=== PATIENT | female | born 1960 | race African-American/Black ===

== ENCOUNTER 2019-04-07 07:09 | Inpatient (IN) | payer OTHER ==
[2019-04-06 13:14] VITALS: BMI 35.5
[2019-04-07] MEDS ORDERED: PNEUMOC 13-VAL CONJ-DIP CRM/PF 0.5 ML DISP.SYRIN IM ONE (08:15)
[2019-04-07] MEDS ORDERED: GENTAMICIN SO4 80 MG/2 ML VIAL ONE (08:51)
[2019-04-07] MEDS ORDERED: LIDOCAINE 1%-EPI 1:100,000 30 ML MDV IJ ONE (08:51)
[2019-04-07] MEDS ORDERED: THROMBIN (BOVINE) 5,000 UNIT VIAL TP ONE (08:52)
[2019-04-07] MEDS ORDERED: PROPOFOL 20 ML ONE (08:53)
[2019-04-07] MEDS ORDERED: MIDAZOLAM HCL 2 MG/2 ML SINGLE DOSE VIAL ONE (08:53)
[2019-04-07] MEDS ORDERED: ROCURONIUM BROMIDE 50 MG/5 ML SYRINGE ONE (08:53)
[2019-04-07] MEDS ORDERED: LIDOCAINE HCL/PF 2% SDV 5ML VIAL ONE (08:54)
[2019-04-07] MEDS ORDERED: PROMETHAZINE HCL 25 MG/1 ML VIAL IVPB PRN ×2 (09:06)
[2019-04-07] MEDS ORDERED: ONDANSETRON 4 MG/2 ML VIAL IVPUSH PRN ×3 (09:06→11:48)
[2019-04-07] MEDS ORDERED: DEXAMETHASONE SOD PHOSPHATE 4 MG/1 ML VIAL IVPUSH PRN (09:06)
--- NOTE | 2019-04-07 09:14 | HP ---
History & Physical Update - History History: No Change - Physical Physical: No Change - Assessment Assessment: No Change - Plan Plan: No Change (Full H&P in paper chart)
[2019-04-07] MEDS ORDERED: VANCOMYCIN 1,000 MG VIAL (RESTRICTED TO ID ONLY) ONE (09:37)
[2019-04-07] MEDS ORDERED: ceFAZolin SODIUM 1 GM VIAL ONE ×2 (09:37→17:21)
[2019-04-07] MEDS ORDERED: SODIUM CHLORIDE 0.9% P/F 10 ML VIAL IJ ONE (09:37)
[2019-04-07] MEDS ORDERED: VANCOMYCIN 1,000 MG VIAL (RESTRICTED TO ID ONLY) IVPB ONE (09:39)
[2019-04-07] MEDS ORDERED: ceFAZolin SODIUM 1 GM VIAL IVPB ONE (09:42)
[2019-04-07] MEDS ORDERED: LIDOCAINE 1%/EPI 1:100000 (20 ML MULTI DOSE VIAL) IJ ONE (09:51)
[2019-04-07] MEDS ORDERED: BACITRACIN 50,000 UNITS VIAL TP ONE (10:15)
[2019-04-07] MEDS ORDERED: GENTAMICIN SO4 80 MG/2 ML VIAL IVPB ONE (10:15)
[2019-04-07] MEDS ORDERED: HYDROGEN PEROXIDE 473 ML PO ONE (10:15)
[2019-04-07] MEDS ORDERED: DESFLURANE GAS 240 ML BOTTLE IH ONE (10:44)
[2019-04-07] MEDS ORDERED: ACETAMINOPHEN INJECTION 100 ML IVPB ONE (11:01)
[2019-04-07] MEDS ORDERED: NEOSTIGMINE METHYLSULFATE 0.5 MG/1 ML - 10 ML MDV ONE (11:04)
[2019-04-07] MEDS ORDERED: GLYCOPYRROLATE 0.2 MG/1 ML VIAL ONE (11:04)
[2019-04-07] MEDS ORDERED: diphenhydrAMINE HCL 25 MG CAPSULE (FP) PO PRN (11:48)
[2019-04-07] MEDS ORDERED: ACETAMINOPHEN 1000 MG/100 ML VIAL (NON FORMULARY) IVPB ONE (11:49)
[2019-04-07] MEDS ORDERED: TRIAMTERENE AND HCTZ - 37.5 MG/25 MG CAPSULE PO SCH (12:00)
--- NOTE | 2019-04-07 12:06 | OP ---
Operative Note - Note: Operative Date: 04/07/19 Pre-Operative Diagnosis: Cervical spondylosis Operation: C4 corpectomy with decompression of Spondylosis and reconstruction with PEEK cage anterior plate Post-Operative Diagnosis: Same as Pre-op Surgeon: Sancho Harper Crutching Contractor: Robbie Walotn Anesthesiologist/CONDITIONER TENDER: Bang Schwab Anesthesia: General Estimated Blood Loss (mls): 50 Fluid Volume Replaced (mls): 1,000 Operative Report Dictated: Yes
[2019-04-07] MEDS: HYDROmorphone *PCA* 10MG/50ML DISP.SYRIN PCA SCH (12:15)
[2019-04-07] MEDS ORDERED: HYDROmorphone *PCA* 10MG/50ML DISP.SYRIN PCA ONE (12:15)
--- NOTE | 2019-04-07 13:25 | PN ---
Progress Note (short form) - Note Progress Note: seen in recovery room Vital Signs Period Temp Pulse Resp BP Sys/Reyna Pulse Ox Last 24 Hr 98.0 F-98.5 F 64-84 16-20 123-146/73-80 99-100 s1s2 rrr lungs cta and moves all 4 extremities awake alert oriented c/o some neck pain cervical drain with bloody discharge 59 yo lady s/p C3/C4 spinal fusion today, tolerated procedure well pmh of htn plan for now as per surgery resume bp meds tomorrow am
[2019-04-07] MEDS: DOCUSATE SODIUM 100 MG CAPSULE (FP) PO SCH ×2 (14:00→21:37)
[2019-04-07] MEDS: HEPARIN NA (PORCINE) 5,000 UNITS/ML 1ML VIAL SQ SCH ×2 (16:46→21:36)
[2019-04-07] MEDS: LACTATED RINGERS SOLUTION 1,000 ML IV SCH (16:47)
[2019-04-07] MEDS: metFORMIN HCL 500 MG TABLET (FP) PO SCH (17:10)
[2019-04-07] MEDS ORDERED: DEXTROSE 5%-WATER - 50 ML IVPB ONE (17:22)
[2019-04-07] MEDS: CEFAZOLIN 1 GM in DEXTROSE 5%-WATER - 50 ML IVPB SCH (17:34)
[2019-04-07] MEDS ORDERED: PNEUMOCOCCAL 23 VACCINE 0.5 ML VIAL IM ONE (18:00)
[2019-04-08] MEDS: LACTATED RINGERS SOLUTION 1,000 ML IV SCH ×2 (00:48→10:22)
[2019-04-08] MEDS ORDERED: ceFAZolin SODIUM 1 GM VIAL ONE ×2 (02:09→10:15)
[2019-04-08] MEDS ORDERED: DEXTROSE 5%-WATER - 50 ML IVPB ONE ×2 (02:10→10:15)
[2019-04-08] MEDS: CEFAZOLIN 1 GM in DEXTROSE 5%-WATER - 50 ML IVPB SCH ×2 (02:13→10:21)
[2019-04-08 02:47] VITALS: TEMP 98
[2019-04-08] MEDS: DOCUSATE SODIUM 100 MG CAPSULE (FP) PO SCH ×2 (07:12→14:28)
[2019-04-08] MEDS: HEPARIN NA (PORCINE) 5,000 UNITS/ML 1ML VIAL SQ SCH ×2 (07:12→14:28)
[2019-04-08] MEDS: metFORMIN HCL 500 MG TABLET (FP) PO SCH ×2 (07:12→17:09)
[2019-04-08 07:55] LABS: HEMOGLOBIN 9.6 GM/dL (10.7-15.3); MCH 30.2 pg (25.7-33.7); MCHC 34.3 g/dl (32.0-36.0); PLATELET COUNT 199 K/MM3 (134-434); RBC 3.18 M/mm3 (3.60-5.2); RDW 13.6 % (11.6-15.6); WHITE BLOOD COUNT 7.9 K/mm3 (4.0-10.0)
[2019-04-08 08:20] LABS: BLOOD UREA NITROGEN 10.4 mg/dL (7-18); CALCIUM 8.5 mg/dL (8.5-10.1); CREATININE 0.8 mg/dL (0.55-1.3); POTASSIUM 3.4 mmol/L (3.5-5.1)
--- NOTE | 2019-04-08 08:23 | PN ---
Progress Note (short form) - Note Progress Note: CBC, BMP 04/08/19 07:20 04/08/19 07:20 Vital Signs Period Temp Pulse Resp BP Sys/Reyna Pulse Ox Last 24 Hr 97.9 F-98.9 F 68-84 16-20 114-138/52-81 97-100 s1s2 rrr lungs cta ant moves all 4 extremities awake alert oriented c/o some neck pain cervical drain with scant bloody discharge 59 yo lady s/p C3/C4 spinal fusion POD#1 pmh of htn plan for now as per surgery resume bp meds and metformin
[2019-04-08] MEDS: HYDROmorphone *PCA* 10MG/50ML DISP.SYRIN PCA SCH (08:45)
[2019-04-08] MEDS ORDERED: POTASSIUM CHLORIDE ORAL LIQUID 20 MEQ/15 ML PO ONE (08:45)
[2019-04-08] MEDS: CEFAZOLIN 1 GM/D5W 1 GM/50 ML BAG IVPB SCH (08:45)
--- NOTE | 2019-04-08 08:52 | PN ---
Progress Note (short form) - Note Progress Note: Neurosurgery 59yo F s/p C4 corpectomy POD1, pt seen and examined at bedside. Pt states that she has neck pain especially sore throat, pt is tolerating liquids. Pt denies fever, chills, n/v. Pt ambulating and urinating well. Pt states that she has been using her SENIOR ELECTRONICS ENGINEER. Pt is anxious to go home today. Last Vital Signs Temp Pulse Resp BP Pulse Ox 98.0 F 70 18 115/52 L 100 04/08/19 05:00 04/08/19 05:00 04/08/19 05:00 04/08/19 05:00 04/08/19 02:15 CBC, BMP 04/08/19 07:20 04/08/19 07:20 PE: Gen: A&O X3 Resp: breathing comfortably Neck: incision is clean with no erythema or discharge, drain in place with serosanguinous drainage. Output: 70ml Ext: no weakness or numbness. Problem List - Problems (1) S/P cervical spinal fusion Assessment/Plan: Plan -pt appears to be doing well, will remove drain later today -plan for pt to go home later today, hopefully once pain is improved. -continue c-collar -OOB/ambulate -soft diet Pt discussed with Dr. Harper, who agrees with plan Code(s): Z98.1 - ARTHRODESIS STATUS
--- NOTE | 2019-04-08 09:53 | PN ---
Progress Note (short form) - Note Progress Note: Post op day#2.S/P C4 Corpectomy under Ga uneventful.Patient stable and c/o pain score of 5-6/10 on Dilaudid ELECTRONIC GLUING MACHINE OPERATOR.Advised the patient to use the ELECTRONIC GLUING MACHINE OPERATOR properly.Will continue ELECTRONIC GLUING MACHINE OPERATOR and will f/u tomorrow.
[2019-04-08] MEDS ORDERED: FOLIC ACID 1 MG TABLET (FP) PO SCH (10:00)
[2019-04-08] MEDS ORDERED: TRIAMTERENE AND HCTZ - 37.5 MG/25 MG CAPSULE PO SCH (10:00)
[2019-04-08] MEDS ORDERED: FERROUS SO4 325 MG TABLET (FP) PO SCH (10:00)
[2019-04-08] MEDS ORDERED: PT OWN MED DRAWER 7, Y5N ONE (10:16)
[2019-04-08] MEDS ORDERED: traMADol HCL 50 MG TABLET PO PRN (14:06)
[2019-04-08] MEDS ORDERED: oxyCODONE HCL 5 MG TABLET PO PRN ×2 (14:06)
[2019-04-08] MEDS ORDERED: ACETAMINOPHEN 325 MG TABLET (FP) PO SCH (14:15)
[2019-04-08 17:16] VITALS: BP 117/59; PULSE 77
--- NOTE | 2019-04-09 09:19 | DS ---
Physical Examination Vital Signs: Vital Signs Temperature 98.0 F 04/08/19 17:14 Pulse Rate 77 04/08/19 17:14 Respiratory Rate 20 04/08/19 17:14 Blood Pressure 117/59 L 04/08/19 17:14 O2 Sat by Pulse Oximetry (%) 99 04/08/19 09:00 Labs: CBC, BMP 04/08/19 07:20 04/08/19 07:20 Discharge Summary Problems reviewed: Yes Reason For Visit: CERVICAL SPONDYLOSIS & METASTATIC FOCI Hospital Course: 59 yo lady s/p C3/C4 spinal fusion on 04.07.2020-tolerated procedure well cervical drain removed 1 day postop, cleared by surgeon to dc home with outpt follow up Condition: Good - Instructions Diet, Activity, Other Instructions: Post Operative Instructions Physical Activity Resume your normal everyday activity as tolerated. No heavy lifting or exercise until seen by your surgeon. You may walk unlimited amounts and climb stairs. You may resume driving the car when you feel safe and comfortable behind the wheel and you are no longer wearing your brace. Do not operate a vehicle while taking narcotic medication. Brace If you had neck surgery, wear surgical collar 23 hr/day. Remove to shower only. Wound Care Keep your incision clean, dry and covered at all times. Apply an occlusive dressing (Saran wrap or Tegaderm) when showering to avoid getting your incision wet. Do not submerge incision or apply ointments or creams. The anuradha will be removed in the office in 10-14 days post-op. Diet There are no dietary restrictions. Eat healthy, high-fiber foods. Drink 6-8 glasses of liquid each day. This will assist in keeping your bowels regular. Pain Management You may take Tylenol or acetaminophen. Any pain prescription medication ordered should be taken as prescribed for moderate to severe pain. Avoid any ibuprofen (Motrin, Advil, Aleve, Toradol, etc) for 3 months unless otherwise discussed with your surgeon. Call Dr Ireland for any of the following: Severe pain not relieved by medication Fever of 101 or higher Excessive bleeding or drainage on dressing Inability to urinate Any chest pain or shortness of breath, seek Emergency Care. Call the office to confirm a post-operative appointment for 2-3 weeks post-op Sancho Harper MD [facility] [address] [place] [address]. [place] [address] Referrals: Sancho Harper MD, FAANS [Staff Physician] - Disposition: HOME - Home Medications Comprehensive Discharge Medication List: Ambulatory Orders Triamterene/Hydrochlorothiazid [Triamterene-Hctz 37.5-25 mg Cp] 1 each PO ASDIR 09/07/17 Metformin HCl [Glucophage] 500 mg PO BID 04/06/19 Docusate Sodium [Colace -] 100 mg PO TID capsule 04/08/19 Docusate Sodium [Colace] 100 mg PO BID #30 capsule 04/08/19 Oxycodone HCl/Acetaminophen [Percocet 5-325 mg Tablet] 1 - 2 tab PO Q6H PRN #84 tablet MDD 8 04/08/19
--- NOTE | 2019-04-13 11:24 | SURG ---
Surgery Investment Consultant Note Investment Consultant: Robbie Walton PA-C Date of Service: 04/07/19 Diagnosis: Cervical spondylotic Myelopathy Procedure: 1. Interbody Cage (Corpectomy) 2. C3 Caudal hemicorpectomy with resection of osteophytes and posterior longitudinal ligament (technically challenging) 3. C4 Corpectomy with resection of osteophytes and posterior longitudinal ligament 4. C5 Rostral hemicorpectomy with resection of osteophytes and posterior longitudinal ligament 5. Anterior instrumentation C3-5 (technically challenging) 6. Fluoroscopy 7. Microdissection 8. C3/4 arthrodesis 9. C4/5 arthrodesis 10. Local autograft 11. Deformity correction (shinto of lordosis) I was present for the entirety of the operative procedure. For further detail, please refer to operative report. Visit type - Case Type Case Type: Scheduled - Emergency Emergency Visit: No - New patient This patient is new to me today: Yes Date on this admission: 04/13/19 - Critical Care Critical Care patient: No
== END 2019-04-08 19:19 | disposition home or self-care (01) | DRG 321 ==
LOC: JSAMEDAYSX 07:09 → J8W 16:40
PROVIDERS: ADMIT Neurological Surgery; ATTEND Neurological Surgery
PROC: 0RB30ZZ Excision of Cervical Vertebral Disc, Open Approach (ICD-10-PCS; 2019-04-07)
PROC: 00NW0ZZ Release Cervical Spinal Cord, Open Approach (ICD-10-PCS; 2019-04-07)
PROC: B01BZZZ Fluoroscopy of Spinal Cord (ICD-10-PCS; 2019-04-07)
PROC: 0RG20A0 Fusion of 2 or more Cervical Vertebral Joints with Interbody Fusion Device, Anterior Approach, Anterior Column, Open Approach (ICD-10-PCS; principal; 2019-04-07 09:00)
DX: M47.12 Other spondylosis with myelopathy, cervical region (principal); E11.9 Type 2 diabetes mellitus without complications; Z79.84 Long term (current) use of oral hypoglycemic drugs; E66.9 Obesity, unspecified; Z68.35 Body mass index [BMI] 35.0-35.9, adult; I10 Essential (primary) hypertension
CPT/HCPCS: 36415; 72125-TC; 76000-TC-FY; 80048; 82962; 85027; 86850; 86900; 86901; 90732; 94010; 94760; 97116-GP; 97161-GP; G0009; J0131; J1644

== ENCOUNTER 2019-04-10 20:13 | Emergency (ER) | payer OTHER ==
[2019-04-10 20:26] VITALS: BMI 35.5
--- NOTE | 2019-04-10 20:34 | PDOC ---
History of Present Illness - General History Source: Patient Exam Limitations: No Limitations - History of Present Illness Initial Comments: 04/10/19 20:36 59yF w PMHx DM, HTN, C4 corpectomy (04/07/19) with C-collar presenting w foreign body sensation at mid throat and dysphagia noted at 7am today while attempting to swallow oxycodone meds. Able to talk, no difficulty breathing, tolerating oral secretions and small amounts of liquid. Unable to swallow meds or solid food. Also complaining of pain d/t unable to take prescribed PO oxycodone. Discharged yesterday from hospital after corpectomy on 04/[address] Harper. Last swallowed meds 11pm day before. Denies fever, chest pain, SOB, nausea/vomiting. <Harley Castellanos - Last Filed: 04/10/19 23:40> <Veronica Snyder - Last Filed: 04/11/19 02:01> - General Chief Complaint: Choking Sensation Stated Complaint: UNABLE TO SWALLOW Time Seen by Provider: 04/10/19 20:33 Past History - Past Medical History Anemia: No Asthma: No Cancer: No Cardiac Disorders: No CVA: No COPD: No CHF: No Dementia: No Diabetes: Yes GI Disorders: No Disorders: No HTN: Yes Hypercholesterolemia: No Liver Disease: No Seizures: No Thyroid Disease: No - Psycho Social/Smoking Cessation Hx Smoking History: Never smoked Have you smoked in the past 12 months: No Hx Alcohol Use: No Drug/Substance Use Hx: No Substance Use Type: None Hx Substance Use Treatment: No <Harley Castellanos - Last Filed: 04/10/19 23:40> <Veronica Snyder - Last Filed: 04/11/19 02:01> - Past Medical History Allergies/Adverse Reactions: Allergies Allergy/AdvReac Type Severity Reaction Status Date / Time meperidine HCl [From Demerol] Allergy Severe Hives Verified 04/07/19 08:23 Home Medications: Ambulatory Orders Triamterene/Hydrochlorothiazid [Triamterene-Hctz 37.5-25 mg Cp] 1 each PO ASDIR 09/07/17 Metformin HCl [Glucophage] 500 mg PO BID 04/06/19 Docusate Sodium [Colace] 100 mg PO BID #30 capsule 04/08/19 Oxycodone HCl/Acetaminophen [Percocet 5-325 mg Tablet] 1 - 2 tab PO Q6H PRN #84 tablet MDD 8 04/08/19 Review of Systems - Review of Systems Constitutional: No: Chills, Fever HEENTM: Yes: Throat Pain. No: Eye Pain, Nose Pain, Throat Swelling Respiratory: No: Cough, Shortness of Breath Cardiac (ROS): No: Chest Pain, Palpitations ABD/GI: No: Abdominal Distended, Constipated, Diarrhea, Nausea, Vomiting : No: Burning, Dysuria Musculoskeletal: No: Back Pain, Joint Pain Integumentary: No: Bruising, Flushing Neurological: No: Headache, Seizure, Tingling Psychiatric: No: Anxiety, Depression Endocrine: No: Intolerance to Cold, Intolerance to Heat Hematologic/Lymphatic: No: Anemia, Blood Clots <Harley Castellanos - Last Filed: 04/10/19 23:40> *Physical Exam - Vital Signs Last Vital Signs Temp Pulse Resp BP Pulse Ox 99.6 F 99 H 04/10/19 20:22 04/10/19 20:22 04/10/19 20:04/10/19 20:04/10/19 20:22 - Physical Exam General Appearance: Yes: Nourished, Appropriately Dressed, Mild Distress HEENT: positive: EOMI, GARCÍA, Normal Voice, Pharynx Normal, Hearing Grossly Normal. negative: Scleral Icterus (R), Scleral Icterus (L), Pharyngeal Erythema , Tonsillar Exudate, Tonsillar Erythema Neck: positive: Supple. negative: Tender, Rigid Respiratory/Chest: positive: Lungs Clear, Normal Breath Sounds. negative: Chest Tender, Respiratory Distress Cardiovascular: positive: Regular Rhythm, Regular Rate, S1, S2. negative: Edema , Murmur Integumentary: positive: Normal Color, Dry Neurologic: positive: Fully Oriented, Alert, Normal Response, Responsive. negative: Sensory Deficit, Confused, Disoriented <Harley Castellanos - Last Filed: 04/10/19 23:40> - Vital Signs Last Vital Signs Temp Pulse Resp BP Pulse Ox 99.6 F 99 H 124/66 04/10/19 20:22 04/10/19 20:22 04/10/19 20:04/10/19 20:22 04/10/19 20:22 <Veronica Snyder - Last Filed: 04/11/19 02:01> ED Treatment Course - LABORATORY CBC & Chemistry Diagram: 04/10/19 21:25 04/10/19 21:25 <Harley Castellanos - Last Filed: 04/10/19 23:40> - LABORATORY CBC & Chemistry Diagram: 04/10/19 21:25 04/10/19 21:25 - ADDITIONAL ORDERS Additional order review: Laboratory Results 04/10/19 21:25 Sodium 139 Potassium 3.5 Chloride 102 Carbon Dioxide 27 Anion Gap 10 BUN 17.0 Creatinine 0.9 Est GFR (CKD-EPI)AfAm 80.55 Est GFR (CKD-EPI)NonAf 69.50 Random Glucose 88 Calcium 9.4 Total Bilirubin 1.0 AST 12 L ALT 14 Alkaline Phosphatase 96 Total Protein 7.4 Albumin 3.5 04/10/19 21:25 RBC 3.35 L MCV 89.2 MCHC 32.6 RDW 13.6 MPV 8.2 Neutrophils % 72.9 Lymphocytes % 16.7 Monocytes % 8.6 Eosinophils % 0.2 Basophils % 1.6 - Medications Given in the ED: ED Medications Discontinued Medications Generic Name Dose Route Start Last Admin Trade Name Freq PRN Reason Stop Dose Admin Dexamethasone Sodium Phosphate 10 mg 04/10/19 22:04 04/10/19 22:22 Decadron Injection - IVPUSH 04/10/19 22:05 10 mg ONCE ONE Administration Glucagon 1 mg 04/10/19 22:04 04/10/19 22:22 Glucagon - IVPUSH 04/10/19 22:05 1 mg ONCE ONE Administration Piperacillin Sod/Tazobactam 100 mls @ 200 mls/hr 04/11/19 00:42 04/11/19 01: 43 Sod 4.5 gm/ Dextrose IVPB 04/11/19 01:11 200 mls/hr ONCE ONE Administration Protocol Morphine Sulfate 4 mg 04/10/19 20:52 04/10/19 21:12 Morphine Injection - IVPUSH 04/10/19 20:53 4 mg ONCE ONE Administration Morphine Sulfate 2 mg 04/10/19 23:15 04/10/19 23:25 Morphine Injection - IVPUSH 04/10/19 23:16 2 mg ONCE ONE Administration <Veronica Snyder - Last Filed: 04/11/19 02:01> Medical Decision Making - Medical Decision Making 04/10/19 20:[address] - WBC 13, Hgb 9 (baseline) --- 59yF w PMHx DM, HTN, C4 corpectomy (04/07/19) with C-collar presenting w foreign body sensation and dysphagia today. Tolerating oral secretions, hemodynamically stable, no trouble breathing. Food bolus vs post-op edema/hematoma vs esophageal spasm. Low concern esophageal perforation (no chest crepitus) vs complete food impaction ( tolerating oral secretions) Given 6 morphine (2 to [address]), decadron, glucagon Anticipate admit for GI endoscopy Signed out to night team <Harley Castellanos - Last Filed: 04/10/19 23:40> Discharge - Discharge Information Problems reviewed: Yes <Harley Castellanos - Last Filed: 04/10/19 23:40> - Transfer to Acute Care Facility Receiving Facility Name: [facility] Accepting Physician:: Dr. Quinones, MICU Transfer Comment: 04/11/19 01:59 Pt requires ICU admission for airway monitoring. No ICU beds at this institution. due to severe supraglotting narrowing on CT, poor candidate for shun-tracheal intubation. Case discussed w/ anesthesia. Should the pt require airway intervention, will need a surgical airway. Safest place would be an ICU at a hospital with 24-h in-house ENT. <Veronica Snyder - Last Filed: 04/11/19 02:01> - Discharge Information Clinical Impression/Diagnosis: Dysphagia Qualifiers: Dysphagia type: esophageal phase Qualified Code(s): R13.10 - Dysphagia, unspecified Condition: Guarded Disposition: TRANSFER ACUTE CARE/OTHER HOSP
[2019-04-10] MEDS ORDERED: morphine CARPU-JECT 4 MG/1 ML DISP.SYRIN IVPUSH ONE (20:52)
[2019-04-10] MEDS ORDERED: morphine SULFATE 4 MG/ML VIAL ONE (21:00)
--- NOTE | 2019-04-10 21:25 | PDOC ---
Documentation entered by Cyndi Mcintosh SCRIBE, acting as scribe for Veronica Snyder MD. Veronica Snyder MD: This documentation has been prepared by the zebibe, Cyndi Mcintosh SCRIBE, under my direction and personally reviewed by me in its entirety. I confirm that the documentation accurately reflects all work, treatment, procedures, and medical decision making performed by me. Attending Attestation - Resident Resident Name: Harley Castellanos - ED Attending Attestation I have performed the following: I have examined & evaluated the patient, The case was reviewed & discussed with the resident, I agree w/resident's findings & plan, Exceptions are as noted - HPI HPI: 04/10/19 21:05 The patient is a 59-year-old female with a past medical history significant for DM, HTN, and corpectomy (on 04/07, discharged on 04/09) who presents to the emergency department with choking sensation. The patient reports she was able to swallow soft food last night, however, since this morning, shes unable to tolerate soft food and pain medication, secondary to foreign body sensation in the esophagus. The patient reports she can tolerate secretions, small amounts of fluids, and talk normally. Denies difficulty breathing or fever. Denies taking pain medication today. - Physicial Exam PE: 04/10/19 21:21 General: well appearing, in no acute respiratory distress Neck: no masses or crepitus, negative bruit. Lung: clear to auscultate Heart: Regular rate and rhythm. Skin: Surgical band clean, dry and intact - Medical Decision Making 04/10/19 21:23 59yoF POD #3 s/p cspine fusion C1-2-3 presents w/ 1d of difficulty swallowing and extreme neck pain, unable to tolerate her pain meds or food, + tolerating secretions. Concern for postop edema/hematoma/bleeding. - CT Neck - pain control - Dispo per results.
[2019-04-10 21:44] LABS: BASO % 1.6 % (0-2.0); EOS % 0.2 % (0-4.5); HEMATOCRIT 29.9 % (32.4-45.2); HEMOGLOBIN 9.7 GM/dL (10.7-15.3); LYMPH % 16.7 % (8-40); MCH 29.1 pg (25.7-33.7); MCHC 32.6 g/dl (32.0-36.0); MEAN CELL VOLUME 89.2 fl (80-96); MEAN PLT VOLUME 8.2 fl (7.5-11.1); MONO % 8.6 % (3.8-10.2); NEUT % 72.9 % (42.8-82.8); PLATELET COUNT 252 K/MM3 (134-434); RBC 3.35 M/mm3 (3.60-5.2); RDW 13.6 % (11.6-15.6)
[2019-04-10] MEDS ORDERED: GLUCAGON 1 MG KIT IVPUSH ONE (22:04)
[2019-04-10] MEDS ORDERED: DEXAMETHASONE SOD PHOSPHATE 10 MG/1 ML VIAL IVPUSH ONE (22:04)
[2019-04-10] MEDS ORDERED: DEXAMETHASONE SOD PHOSPHATE 10 MG/1 ML VIAL ONE (22:11)
[2019-04-10] MEDS ORDERED: GlUCAGON HUMAN RECOMBINANT 1 MG/VIAL ONE (22:12)
[2019-04-10 22:37] LABS: ALBUMIN 3.5 g/dl (3.4-5.0); CALCIUM 9.4 mg/dL (8.5-10.1); CREATININE 0.9 mg/dL (0.55-1.3); POTASSIUM 3.5 mmol/L (3.5-5.1); TOT PROT 7.4 g/dl (6.4-8.2)
[2019-04-10] MEDS ORDERED: morphine CARPU-JECT 2 MG/1 ML DISP.SYRIN IVPUSH ONE (23:15)
[2019-04-10] MEDS ORDERED: MORPHINE SULFATE 2 MG/ML VIAL ONE (23:19)
--- NOTE | 2019-04-10 23:41 | PDOC ---
*Physical Exam - Vital Signs Last Vital Signs Temp Pulse Resp BP Pulse Ox 99.6 F 99 H 19 124/66 99 04/10/19 20:22 04/10/19 20:22 04/10/19 20:22 04/10/19 20:22 04/10/19 20:22 ED Treatment Course - LABORATORY CBC & Chemistry Diagram: 04/10/19 21:25 04/10/19 21:25 - ADDITIONAL ORDERS Additional order review: Laboratory Results 04/10/19 21:25 Sodium 139 Potassium 3.5 Chloride 102 Carbon Dioxide 27 Anion Gap 10 BUN 17.0 Creatinine 0.9 Est GFR (CKD-EPI)AfAm 80.55 Est GFR (CKD-EPI)NonAf 69.50 Random Glucose 88 Calcium 9.4 Total Bilirubin 1.0 AST 12 L ALT 14 Alkaline Phosphatase 96 Total Protein 7.4 Albumin 3.5 04/10/19 21:25 RBC 3.35 L MCV 89.2 MCHC 32.6 RDW 13.6 MPV 8.2 Neutrophils % 72.9 Lymphocytes % 16.7 Monocytes % 8.6 Eosinophils % 0.2 Basophils % 1.6 - RADIOLOGY Radiology Studies Ordered: Category Date Time Status SOFT TISSUE NECK CT WITH CONTR [CT] Stat CT Scan 04/10/19 21:06 Taken - Medications Given in the ED: ED Medications Discontinued Medications Generic Name Dose Route Start Last Admin Trade Name Huber PRN Reason Stop Dose Admin Dexamethasone Sodium Phosphate 10 mg 04/10/19 22:04 04/10/19 22:22 Decadron Injection - IVPUSH 04/10/19 22:05 10 mg ONCE ONE Administration Glucagon 1 mg 04/10/19 22:04 04/10/19 22:22 Glucagon - IVPUSH 04/10/19 22:05 1 mg ONCE ONE Administration Morphine Sulfate 4 mg 04/10/19 20:52 04/10/19 21:12 Morphine Injection - IVPUSH 04/10/19 20:53 4 mg ONCE ONE Administration Morphine Sulfate 2 mg 04/10/19 23:15 04/10/19 23:25 Morphine Injection - IVPUSH 04/10/19 23:16 2 mg ONCE ONE Administration Medical Decision Making - Medical Decision Making 04/10/19 23:[address] Castellanos (PGY-1) 59 y/o female two day s/p C1-C3 fusion c/o choking sensation No crepitus, edema @ surgical incision site, patient @ CT pending evaluation for hematoma, 04/11/19 00:38 Case d/w Imaging commercial subcontractor - concern for cluster for gas bubbles in fluid + faint collection in retropharynx, loculated, w/mass effects, airway small + edema; Dr. Brendon Antoine Patient re-evaluated @ bedside 04/11/19 00:39 Case d/w Dr. Reynaldo Freeman (IM resident) - will admit to hospitalist 04/11/19 00:56 Case d/w Dr. Ly (ICU resident) - will evaluate at beside 04/11/19 01:00 Case d/w Dr. Harper (Neurosurgery) - requests prophylatic intubation 04/11/19 01:03 Case d/w anesthesia - recommend ENT 04/11/19 01:17 Case d/w Dr. Maravilla- recommends transfer as patient needs hospital with full ENT coverage Patient re-evaluated @ bedside, VSS, protecting airway with normal phonation, pain well controlled 04/11/19 01:[address] [facility] contacted for transfer 04/11/19 02:00 Patient accepted to [facility] - Dr. Ann Discharge - Discharge Information Problems reviewed: Yes Clinical Impression/Diagnosis: Dysphagia Qualifiers: Dysphagia type: esophageal phase Qualified Code(s): R13.10 - Dysphagia, unspecified Condition: Good Disposition: TRANSFER ACUTE CARE/OTHER HOSP - Admission No - Follow up/Referral - Patient Discharge Instructions - Post Discharge Activity
[2019-04-11] MEDS ORDERED: VANCOMYCIN 1,000 MG in DEXTROSE 5%-WATER - 250 ML IVPB ONE (00:42)
[2019-04-11] MEDS ORDERED: PIPERACILLIN/TAZOB 4.5 GM 4.5 GM in DEXTROSE 5%-WATER 100 ML IVPB ONE (00:42)
--- NOTE | 2019-04-11 00:57 | PN ---
Teaching Attending Note Name of Resident: Francisco Santo ATTENDING PHYSICIAN STATEMENT I saw and evaluated the patient. I reviewed the resident's note and discussed the case with the resident. I agree with the resident's findings and plan as documented. SUBJECTIVE: Patient is a 59 year old woman with a PMH of NIDDM, HTN and C4 corpectomy on (with decompression of Spondylosis and reconstruction with PEEK cage anterior plate) with C-collar presenting with foreign body sensation at mid throat and dysphagia noted at 7 am today while attempting to swallow Oxycodone pills. Able to talk, no difficulty breathing, tolerating oral secretions and small amounts of liquid. Unable to swallow medications or solid food. Also complaining of pain due to inability to take prescribed oxycodone. Discharged yesterday from hospital after corpectomy on 04/07/[address] Harper. Last swallowed meds 11pm day before. Denies fever, chest pain, SOB, nausea or vomiting. Denies alcohol, tobacco or illicit drug use. No sick contacts or recent travels. OBJECTIVE: Alert Vital Signs Period Temp Pulse Resp BP Sys/Reyna Pulse Ox Last 24 Hr 99.6 F 99 19 124/66 99 HEENT: No Jaundice, eye redness or discharge, PERRLA, EOMI. Normocephalic, atraumatic. External ears are normal and hearing is grossly intact. No nasal discharge. Neck: Supple; Cervical collar in place, neck wound dressed; no stridor or crepitus. No palpable adenopathy or thyromegaly. No JVD Chest: Good effort. Clear to auscultation and percussion. Heart: Regular. No S3, rub or murmur Abdomen: Not distended, soft, nontender and no HSM. No rebound or guarding. Normal bowel sounds. Ext: Peripheral pulses intact. No leg edema. Skin: Warm and dry. No petechiae, rash or ecchymosis. Neuro: Alert. Oriented x3. CN 2-12 grossly intact. Sensation grossly intact in all four extremities and DTR are symmetric. Psych: Appropriate mood and affect. Good insight. Current Medications Generic Name Dose Route Start Last Admin Trade Name Freq PRN Reason Stop Dose Admin Vancomycin HCl 1,000 mg/ 250 mls @ 250 mls/hr 04/11/19 00:42 Dextrose IVPB 04/11/19 01:41 ONCE ONE Protocol Piperacillin Sod/Tazobactam 100 mls @ 200 mls/hr 04/11/19 00:42 Sod 4.5 gm/ Dextrose IVPB 04/11/19 01:11 ONCE ONE Protocol Home Medications Medication Instructions Recorded Triamterene/Hydrochlorothiazid 1 each PO ASDIR 09/07/17 [Triamterene-Hctz 37.5-25 mg Cp] Metformin HCl [Glucophage] 500 mg PO BID 04/06/19 Docusate Sodium [Colace] 100 mg PO BID #30 capsule 04/08/19 Oxycodone HCl/Acetaminophen 1 - 2 tab PO Q6H PRN #84 tablet 04/08/19 [Percocet 5-325 mg Tablet] MDD 8 Abnormal Lab Results 04/10/19 04/10/19 21:25 21:25 WBC 13.0 H RBC 3.35 L Hgb 9.7 L Hct 29.9 L Absolute Neuts (auto) 9.5 H AST 12 L ASSESSMENT AND PLAN: 1. Sepsis due to surgical site infection/abscess - CT scan of neck soft tissue shows possible "cluster for gas bubbles in fluid + faint collection in retropharynx, loculated, with mass effects, airway small + edema. ER staff discussed case with the Neurosurgeon who recommended prophylactic intubation and IV Decadron. Anaesthesia felt intubation was not warranted. ENT specialist consult. Will continue IV Decadron 4 mg q 6 hour and Morphine 1 mg q 6 hours and IV NS. Will monitor closely for respiratory distress and/or stridor. Being treated with IV Vancomycin and Zosyn. EKG shows NSR and LVH. Will continue comprehensive care for all of patients comorbid conditions. 2. DM For now, we will hold the home diabetes drugs and implement sliding scale insulin regimen. Provide comprehensive diabetes care with patient teaching and counseling about the importance of adherence to prescribed diabetes regimen, euglycemia, eye care and foot care. 3. Anemia - Cause unclear. Will do basic anemia work up including serial stool guaiacs, reticulocyte count and iron studies. Would benefit from Procrit therapy once iron replete. 4. Obesity Counseled on the risks associated with obesity. Will provide patient all the necessary assistance, counseling and positive reinforcement to facilitate weight loss. Consult social media marketing manager. 5. Hypertension - Restart suitable outpatient antihypertensive drugs when clinically appropriate. Revise regimen to ensure [id number] excellent BP control and domestic violence counselor patient on the injurious effects of uncontrolled hypertension. Nonpharmacologic measures to control hypertension like weight loss , salt restriction and exercise discussed. Importance of adherence to treatment regimen and attainment of normotension emphasized. 6. DVT prophylaxis - SCD, Early ambulation 7. Advance directives - Full code
[2019-04-11] MEDS ORDERED: VANCOMYCIN 1 GRAM (PRE-DOCKED) 1,000 MG/250 ML BAG IVPB ONE (01:17)
[2019-04-11] MEDS ORDERED: PIPERACILLIN/TAZOB 4.5 GM 4.5 GM/100 ML BAG IVPB ONE (01:17)
[2019-04-11] MEDS ORDERED: INSULIN SLIDING SCALE (NOVOLOG) 1 VIAL SQ SCH ×2 (01:45→07:00)
--- NOTE | 2019-04-11 01:56 | HP ---
CHIEF COMPLAINT: difficulty swallowing PCP: Dr. Macie Guillaume HISTORY OF PRESENT ILLNESS: Kira Vanegas is a 59 year old female with a past medical history of DM, HTN, recent C4 corpectomy and cervical fusion presenting with difficulty swallowing. The patient was recently discharged 04/09/19 after having the above named procedure. She noted that she was doing well with her cervical collar. On the night before admission, the patient was able to tolerate her oral pain medications at 11PM and went to bed. She then noted that when she woke up and attempted to take her medications at 8AM she was unable to swallow them properly and had pain on the right side of her neck. She noted that at first she only had difficulty swallowing solids but progressed to not being able to tolerate liquids well and at bedside had difficulty with her saliva. She denied any shortness of breath, wheezing, gasping, dizziness, lightheadedness, nausea, vomiting, abdominal pain, fever, chills. Endorsed some squeezing chest pain on the left side of her chest and neck pain on the R side. Denied any focal weakness or sensory loss. Denied recent travel or sick contacts. ER course was notable for: (1) HR 99, O2 sat 99 on RA (2) WBC 13.0, Hgb 9.7 (3) Given Decadron 10mg, Glucagon 1mg, Morphine total 6mg, Vancomycin, Zosyn (4) Cervical soft tissue neck CT noting: Patient is status post multilevel anterior cervical fusion from C3 through C5. There is postoperative fluid in the right anterior cervical incisional tract from C3 through C5. However, there is a cluster of gas bubbles within this fluid that is concerning for infection. There is also a faint elongated fluid collection with a thin wall in the soft tissues of the posterior hypopharynx. 3.8 cm transverse and 7.5 mm AP. The etiology of this collection is uncertain but abscess is possible. It is exerting mass effect on the posterior aspect of the hypopharynx just inferior to the epiglottis resulting in a very small airway at this level. There is also generalized retropharyngeal and retrolaryngeal edema. Parotid and submandibular glands are normal. Enlarged nodular left lobe thyroid. No discrete cervical hematoma is identified. 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 Allergies meperidine HCl [From Demerol] Allergy (Severe, Verified 04/07/19 08:23) Hives HOME MEDICATIONS: Home Medications Medication Instructions Recorded Triamterene/Hydrochlorothiazid 1 each PO ASDIR 09/07/17 [Triamterene-Hctz 37.5-25 mg Cp] Metformin HCl [Glucophage] 500 mg PO BID 04/06/19 Docusate Sodium [Colace] 100 mg PO BID #30 capsule 04/08/19 Oxycodone HCl/Acetaminophen 1 - 2 tab PO Q6H PRN #84 tablet 04/08/19 [Percocet 5-325 mg Tablet] MDD 8 REVIEW OF SYSTEMS CONSTITUTIONAL: Absent: fever, chills, diaphoresis, generalized weakness, malaise, loss of appetite, HEENT: throat pain, throat swelling, difficulty swallowing Absent: rhinorrhea, nasal congestion, mouth swelling, visual changes CARDIOVASCULAR: chest pain Absent: syncope, palpitations, irregular heart rate, lightheadedness, peripheral edema RESPIRATORY: Absent: cough, shortness of breath, dyspnea with exertion, orthopnea, wheezing, stridor GASTROINTESTINAL: Absent: abdominal pain, abdominal distension, nausea, vomiting, diarrhea, constipation GENITOURINARY: Absent: dysuria, frequency, urgency, hesitancy, hematuria, flank pain MUSCULOSKELETAL: Absent: myalgia, arthralgia, joint swelling, back pain, neck pain SKIN: Absent: rash, itching, pallor HEMATOLOGIC/IMMUNOLOGIC: Absent: easy bleeding, easy bruising, lymphadenopathy, frequent infections ENDOCRINE: Absent: unexplained weight gain, unexplained weight loss, heat intolerance, cold intolerance NEUROLOGIC: Absent: headache, focal weakness or paresthesias, dizziness, unsteady gait, seizure, mental status changes, bladder or bowel incontinence PSYCHIATRIC: Absent: anxiety, depression, suicidal or homicidal ideation, hallucinations. PHYSICAL EXAMINATION Vital Signs - 24 hr 04/10/19 20:22 Temperature 99.6 F Pulse Rate 99 H Respiratory 19 Rate Blood Pressure 124/66 O2 Sat by Pulse 99 Oximetry (%) GENERAL: Awake, alert, and fully oriented, in mild acute distress. HEAD: Normal with no signs of trauma. EYES: Pupils equal, round and reactive to light, extraocular movements intact, sclera anicteric, conjunctiva clear. EARS, NOSE, THROAT: Oropharynx clear without exudates. Tongue not enlarged. Non enlarged tonsils. Moist mucous membranes. NECK: In [place] collar. Limited range of motion, tender to palpation on R side of the neck. No auscultated stridor. Normal tracheal breath sounds. LUNGS: Breath sounds equal, clear to auscultation bilaterally. No wheezes, and no crackles. No accessory muscle use. HEART: Regular rate and rhythm, normal S1 and S2 without murmur, rub. ABDOMEN: Soft, nontender, not distended, normoactive bowel sounds, no guarding, no rebound, no masses. MUSCULOSKELETAL: Normal range of motion at all joints. No bony deformities or tenderness. UPPER EXTREMITIES: 2+ pulses, warm, well-perfused. No cyanosis. No clubbing. No peripheral edema. LOWER EXTREMITIES: 2+ pulses, warm, well-perfused. No calf tenderness. No peripheral edema. NEUROLOGICAL: Cranial nerves II-XII intact. 5/5 muscle strength upper and lower extremities bilaterally. Sensation intact to gross touch throughout. PSYCHIATRIC: Cooperative. Good eye contact. Appropriate mood and affect. SKIN: Warm, dry, normal turgor, no rashes or lesions noted, normal capillary refill. Laboratory Results - last 24 hr 04/10/19 04/10/19 21:25 21:25 WBC 13.0 H RBC 3.35 L Hgb 9.7 L Hct 29.9 L MCV 89.2 MCH 29.1 MCHC 32.6 RDW 13.6 Plt Count 252 D MPV 8.2 Absolute Neuts (auto) 9.5 H Neutrophils % 72.9 Lymphocytes % 16.7 Monocytes % 8.6 Eosinophils % 0.2 Basophils % 1.6 Nucleated RBC % 0 Sodium 139 Potassium 3.5 Chloride 102 Carbon Dioxide 27 Anion Gap 10 BUN 17.0 Creatinine 0.9 Est GFR (CKD-EPI)AfAm 80.55 Est GFR (CKD-EPI)NonAf 69.50 Random Glucose 88 Calcium 9.4 Total Bilirubin 1.0 AST 12 L ALT 14 Alkaline Phosphatase 96 Total Protein 7.4 Albumin 3.5 EKG--> NSR, LVH, no ST segment changes, QTc 459 ASSESSMENT/PLAN: Kira Vanegas is a 59 year old female with a past medical history of DM, HTN, recent C4 corpectomy and cervical fusion admitted for possible impending airway compromise attributed to mass effect from abscess vs hematoma. Possible impending airway compromise - CT as above - neurosurgery, Dr. Harper consulted by ER, recommending anesthesia evaluation and possible prophylactic intubation - anesthesia contacted by ER recommending close observation - ENT consulted, Dr. French, recommending transfer to [facility] - Decadron 10mg given in ED, continue at 4mg q6h - ICU monitoring with frequency airway checks, oxygen saturation - low threshold for intubation - neurochecks - CXR ordered Sepsis secondary to possible abscess in neck with recent instrumentation - HR 99 and WBC 13.0 - continue vancomycin and Zosyn - ID consulted Chest Pain - EKG ordered - cardiac profile - continue to monitor DM - BGM q4h while patient on sterioids - ISS q4h - A1c Anemia - likely in setting of recent surgery - iron studies - FOBT Thyroid Nodule noted on CT scan - will need to have thyroid U/S as outpatient - endocrine consulted HTN - currently well controlled - restart home medications when clinically appropriate DVT PPx - SCDS - no chemical AC in setting of possible hematoma FEN - no standing fluids - continue to monitor electrolytes and replete as necessary - NPO pending evaluation by ENT Dispo - admit to ICU - transfer to [facility] Family Medical History Other Family History: Uncle- colon CA, Mother - HTN Visit type - Emergency Visit Emergency Visit: Yes Care time: The patient presented to the Emergency Department on the above date and was hospitalized for further evaluation of their emergent condition. - New Patient This patient is new to me today: Yes Date on this admission: 04/11/19 - Critical Care Critical Care patient: Yes Total Critical Care Time (in minutes): 40 Critical Care Statement: The care of this patient involved high complexity decision making to prevent further life threatening deterioration of the patient 's condition and/or to evaluate & treat vital organ system(s) failure or risk of failure.
[2019-04-11 01:59] LABS: INR 1.15 (0.83-1.09); PROTHROMBIN TIME (PATIENT) 13.6 SEC (9.7-13.0)
--- NOTE | 2019-04-11 02:37 | DS ---
Physical Exam: SUBJECTIVE: Patient seen and examined at the bedside. Refer to H&P for further detail. OBJECTIVE: Vital Signs Period Temp Pulse Resp BP Sys/Reyna Pulse Ox Last 24 Hr 99.6 F 99 19 124/66 99 PHYSICAL EXAM GENERAL: Awake, alert, and fully oriented, in mild acute distress. HEAD: Normal with no signs of trauma. EYES: Pupils equal, round and reactive to light, extraocular movements intact, sclera anicteric, conjunctiva clear. EARS, NOSE, THROAT: Oropharynx clear without exudates. Tongue not enlarged. Non enlarged tonsils. Moist mucous membranes. NECK: In [place] collar. Limited range of motion, tender to palpation on R side of the neck. No auscultated stridor. Normal tracheal breath sounds. LUNGS: Breath sounds equal, clear to auscultation bilaterally. No wheezes, and no crackles. No accessory muscle use. HEART: Regular rate and rhythm, normal S1 and S2 without murmur, rub. ABDOMEN: Soft, nontender, not distended, normoactive bowel sounds, no guarding, no rebound, no masses. MUSCULOSKELETAL: Normal range of motion at all joints. No bony deformities or tenderness. UPPER EXTREMITIES: 2+ pulses, warm, well-perfused. No cyanosis. No clubbing. No peripheral edema. LOWER EXTREMITIES: 2+ pulses, warm, well-perfused. No calf tenderness. No peripheral edema. NEUROLOGICAL: Cranial nerves II-XII intact. 5/5 muscle strength upper and lower extremities bilaterally. Sensation intact to gross touch throughout. PSYCHIATRIC: Cooperative. Good eye contact. Appropriate mood and affect. SKIN: Warm, dry, normal turgor, no rashes or lesions noted, normal capillary refill. LABS Laboratory Results - last 24 hr 04/10/19 04/10/19 04/11/19 21:25 21:25 01:25 WBC 13.0 H RBC 3.35 L Hgb 9.7 L Hct 29.9 L MCV 89.2 MCH 29.1 MCHC 32.6 RDW 13.6 Plt Count 252 D MPV 8.2 Absolute Neuts (auto) 9.5 H Neutrophils % 72.9 Lymphocytes % 16.7 Monocytes % 8.6 Eosinophils % 0.2 Basophils % 1.6 Nucleated RBC % 0 PT with INR 13.60 H INR 1.15 H PTT (Actin FS) 34.0 Sodium 139 Potassium 3.5 Chloride 102 Carbon Dioxide 27 Anion Gap 10 BUN 17.0 Creatinine 0.9 Est GFR (CKD-EPI)AfAm 80.55 Est GFR (CKD-EPI)NonAf 69.50 Random Glucose 88 Calcium 9.4 Total Bilirubin 1.0 AST 12 L ALT 14 Alkaline Phosphatase 96 Total Protein 7.4 Albumin 3.5 HOSPITAL COURSE: ENT, Dr. French, contacted and recommended [facility] ER physicians initiated transfer and patient to be transferred to the service of Dr. Ann. Refer to H&P for further detail of patient's condition. Date of Admission:04/10/19 Date of Discharge: 04/11/19 Minutes to complete discharge: 35 Discharge Summary Problems reviewed: Yes Reason For Visit: UNABLE TO SWALLOW Current Active Problems Dysphagia (Acute) Condition: Guarded - Instructions Disposition: TRANSFER ACUTE CARE/OTHER HOSP - Home Medications Comprehensive Discharge Medication List: Ambulatory Orders Triamterene/Hydrochlorothiazid [Triamterene-Hctz 37.5-25 mg Cp] 1 each PO ASDIR 09/07/17 Metformin HCl [Glucophage] 500 mg PO BID 04/06/19 Docusate Sodium [Colace] 100 mg PO BID #30 capsule 04/08/19 Oxycodone HCl/Acetaminophen [Percocet 5-325 mg Tablet] 1 - 2 tab PO Q6H PRN #84 tablet MDD 8 04/08/19 Problem List - Problems (1) Airway compromise Code(s): J98.8 - OTHER SPECIFIED RESPIRATORY DISORDERS (2) S/P cervical spinal fusion Code(s): Z98.1 - ARTHRODESIS STATUS This patient is new to me today: Yes Date on this admission: 04/11/19 Emergency Visit: Yes Care time: The patient presented to the Emergency Department on the above date and was hospitalized for further evaluation of their emergent condition. Critical Care patient: Yes Total Critical Care Time (in minutes): 35 Critical Care Statement: The care of this patient involved high complexity decision making to prevent further life threatening deterioration of the patient 's condition and/or to evaluate & treat vital organ system(s) failure or risk of failure. - Discharge Referral Referred to [facility] No
[2019-04-11 02:53] VITALS: BP 113/61; PULSE 76
[2019-04-11] MEDS ORDERED: PIPERACILLIN/TAZOB 4.5 GM 4.5 GM in DEXTROSE 5%-WATER 100 ML IVPB SCH ×2 (03:00→09:00)
[2019-04-11 03:02] LABS: URINE APPEARANCE CLEAR; URINE COLOR YELLOW; URINE GLUCOSE (UA) NEGATIVE (NEGATIVE)
[2019-04-11 03:03] LABS: URINE BILIRUBIN SMALL (NEGATIVE); URINE KETONE 80 (NEGATIVE); URINE PROTEIN TRACE (NEGATIVE)
[2019-04-11 03:04] LABS: EPI CELLS 1.1 /HPF (0-5/HPF); HYALINE CASTS 4.81 /lpf (0-8); URINE BACTERIA 0.7 /hpf (NEGATIVE); URINE LEUK ESTERASE NEGATIVE (NEGATIVE); URINE NITRITE NEGATIVE (NEGATIVE); URINE UROBILINOGEN 0.2 mg/dL (0.2-1.0); URINE WBC 2.1 /hpf (0-5)
[2019-04-11 03:11] VITALS: TEMP 98.1
[2019-04-11] MEDS ORDERED: MORPHINE SULFATE 2 MG/ML VIAL IVPUSH PRN ×2 (04:00)
[2019-04-11] MEDS ORDERED: DEXAMETHASONE SOD PHOSPHATE 4 MG/1 ML VIAL IVPUSH SCH (04:30)
--- NOTE | 2019-04-11 09:11 | EKG ---
Test Reason : Blood Pressure : / mmHG Vent. Rate : 077 BPM Atrial Rate : 077 BPM P-R Int : 192 ms QRS Dur : 098 ms QT Int : 406 ms P-R-T Axes : 061 004 035 degrees QTc Int : 459 ms NORMAL SINUS RHYTHM MINIMAL VOLTAGE CRITERIA FOR LVH, MAY BE NORMAL VARIANT BORDERLINE ECG NO PREVIOUS ECGS AVAILABLE Confirmed by Anselmo Herrera ([id number]) on 04/11/2019 9:11:15 AM Referred By: Confirmed By:Anselmo Herrera
[2019-04-11] MEDS ORDERED: MUPIROCIN 2% TOPICAL OINTMENT FOR DECOLONIZATION NS SCH (10:00)
[2019-04-11] MEDS ORDERED: VANCOMYCIN 1 GM in D5W (PRE-DOCKED) 1,000 MG/250 ML IVPB SCH (13:00)
[2019-04-11] MEDS ORDERED: CHLORHEXIDINE GLUCONATE 4% CLEANSER FOR DECOLONIZATION TP SCH (22:00)
== END 2019-04-11 03:25 | disposition short-term general hospital (02) ==
LOC: JER 20:13
PROC: 3E013VG Introduction of Insulin into Subcutaneous Tissue, Percutaneous Approach (ICD-10-PCS; principal; 2019-04-10)
PROC: 3E03329 Introduction of Other Anti-infective into Peripheral Vein, Percutaneous Approach (ICD-10-PCS; 2019-04-10)
PROC: 3E03329 Introduction of Other Anti-infective into Peripheral Vein, Percutaneous Approach (ICD-10-PCS; 2019-04-10)
PROC: 3E033NZ Introduction of Analgesics, Hypnotics, Sedatives into Peripheral Vein, Percutaneous Approach (ICD-10-PCS; 2019-04-10)
PROC: 3E033NZ Introduction of Analgesics, Hypnotics, Sedatives into Peripheral Vein, Percutaneous Approach (ICD-10-PCS; 2019-04-10)
PROC: 3E033GC Introduction of Other Therapeutic Substance into Peripheral Vein, Percutaneous Approach (ICD-10-PCS; 2019-04-10)
PROC: 3E0333Z Introduction of Anti-inflammatory into Peripheral Vein, Percutaneous Approach (ICD-10-PCS; 2019-04-10)
DX: J98.8 Other specified respiratory disorders (principal); T81.44XA Sepsis following a procedure, initial encounter; A41.9 Sepsis, unspecified organism; Y83.8 Other surgical procedures as the cause of abnormal reaction of the patient, or of later complication, without mention of misadventure at the time of the procedure; Y92.038 Other place in apartment as the place of occurrence of the external cause; I10 Essential (primary) hypertension; E11.9 Type 2 diabetes mellitus without complications; Z79.84 Long term (current) use of oral hypoglycemic drugs; D64.9 Anemia, unspecified; R07.9 Chest pain, unspecified; E04.1 Nontoxic single thyroid nodule; E66.9 Obesity, unspecified; Z68.35 Body mass index [BMI] 35.0-35.9, adult; Z98.1 Arthrodesis status
CPT/HCPCS: 36415; 70491-TC; 71045-TC-FY; 80053; 81003; 82962; 85025; 85610; 85730; 86850; 86900; 86901; 87040; 93005; 93010; 99285-25; J1100; Q9967

== ENCOUNTER 2021-05-23 11:00 | Inpatient (IN) | payer OTHER ==
[2021-06-18 06:26] VITALS: BMI 37.4
[2021-06-18] MEDS ORDERED: BUPIVACAINE LIPOSOME/PF (EXPAREL) 266 MG/20 ML VIAL ONE (07:18)
[2021-06-18] MEDS ORDERED: GENTAMICIN SO4 80 MG/2 ML VIAL ONE (07:18)
[2021-06-18] MEDS ORDERED: THROMBIN (BOVINE) 20,000 UNIT VIAL TP ONE (07:18)
[2021-06-18] MEDS ORDERED: BUPIVACAINE HCL/PF 0.5% (5MG/ML) 10 ML VIAL ONE (07:18)
[2021-06-18] MEDS ORDERED: LIDOCAINE HCL 1% EPINEPHRINE 1:200,000 30 ML VIAL (PF) ONE ×2 (07:21→07:32)
[2021-06-18] MEDS ORDERED: ROCURONIUM BROMIDE 50 MG/5 ML SYRINGE ONE ×2 (07:27→10:09)
[2021-06-18] MEDS ORDERED: SUCCINYLCHOLINE CHLORIDE 200 MG/10 ML SYRINGE ONE (07:27)
[2021-06-18] MEDS ORDERED: MIDAZOLAM HCL 2 MG/2 ML SINGLE DOSE VIAL ONE (07:27)
[2021-06-18] MEDS ORDERED: PROPOFOL 20 ML ONE ×4 (07:27→09:42)
[2021-06-18] MEDS ORDERED: ceFAZolin SODIUM 1 GM VIAL IVPB ONE ×2 (07:39→08:45)
[2021-06-18] MEDS ORDERED: TRANEXAMIC ACID 1000 MG/10 ML VIAL IVPUSH ONE (07:46)
[2021-06-18] MEDS ORDERED: VANCOMYCIN 1 GM in D5W (PRE-DOCKED) 1,000 MG/250 ML IVPB ONE ×2 (07:46→09:00)
[2021-06-18] MEDS ORDERED: THROMBIN (BOVINE) 5,000 UNIT VIAL TP ONE ×2 (07:47→09:23)
[2021-06-18] MEDS ORDERED: GENTAMICIN SO4 80 MG/2 ML VIAL IVPB ONE ×2 (07:48→09:30)
[2021-06-18] MEDS ORDERED: HYDROGEN PEROXIDE 473 ML PO ONE ×2 (07:48→09:49)
[2021-06-18] MEDS ORDERED: BUPIVACAINE LIPOSOME/PF (EXPAREL) 266 MG/20 ML VIAL NR ONE ×2 (07:49→11:20)
[2021-06-18] MEDS ORDERED: BUPIVACAINE HCL/PF 0.5% (5MG/ML) 10 ML VIAL IJ ONE ×2 (07:49→11:20)
[2021-06-18] MEDS ORDERED: ACETAMINOPHEN INJECTION 100 ML IVPB ONE (07:52)
[2021-06-18] MEDS ORDERED: DEXMEDETOMIDINE HCL 200 MCG/2 ML IVPB ONE (07:52)
[2021-06-18] MEDS ORDERED: PHENYLEPHRINE HCL 10 MG/1 ML SINGLE DOSE VIAL ONE (08:32)
[2021-06-18] MEDS ORDERED: VANCOMYCIN 1,000 MG VIAL (RESTRICTED TO ID ONLY) ONE ×2 (08:56→09:16)
[2021-06-18] MEDS ORDERED: KETAMINE HCL 200 MG/20 ML VIAL ONE (09:01)
[2021-06-18] MEDS ORDERED: diphenhydrAMINE HCL 25 MG CAPSULE (FP) PO PRN (12:13)
[2021-06-18] MEDS ORDERED: ONDANSETRON 4 MG/2 ML VIAL IVPUSH PRN ×2 (12:13→13:33)
[2021-06-18] MEDS ORDERED: oxyCODONE HCL 5 MG TABLET PO PRN (12:13)
[2021-06-18] MEDS ORDERED: morphine SULFATE 4 MG/ML VIAL IVPUSH PRN (12:13)
[2021-06-18] MEDS ORDERED: LACTATED RINGERS SOLUTION 1,000 ML/1,000 ML INFUS.BAG IV SCH ×2 (12:15→18:27)
[2021-06-18] MEDS: HEPARIN NA (PORCINE) 5,000 UNITS/ML 1ML VIAL SQ SCH ×2 (12:15→21:27)
[2021-06-18] MEDS ORDERED: HEPARIN NA (PORCINE) 5,000 UNITS/ML 1ML VIAL ONE (15:08)
[2021-06-18] MEDS ORDERED: HEPARIN NA (PORCINE) 5,000 UNITS/ML 1ML VIAL SQ ONE (15:11)
[2021-06-18] MEDS ORDERED: CEFAZOLIN 1 GM/D5W 1 GM/50 ML BAG IVPB SCH (18:00)
[2021-06-18] MEDS ORDERED: DEXTROSE 5%-WATER - 50 ML IVPB ONE (18:25)
[2021-06-18] MEDS ORDERED: ceFAZolin SODIUM 1 GM VIAL ONE (18:25)
[2021-06-18] MEDS: DOCUSATE SODIUM 100 MG CAPSULE (FP) PO SCH ×2 (18:28→21:27)
[2021-06-18] MEDS: CEFAZOLIN 1 GM in DEXTROSE 5%-WATER - 1 GM/50 ML IVPB IVPB SCH (18:28)
[2021-06-18] MEDS: INSULIN SLIDING SCALE (NOVOLOG) 1 VIAL SQ SCH ×2 (19:34→21:27)
[2021-06-18] MEDS: metFORMIN HCL 500 MG TABLET (FP) PO SCH (19:35)
[2021-06-19] MEDS ORDERED: DEXTROSE 5%-WATER - 50 ML IVPB ONE ×3 (00:59→17:32)
[2021-06-19] MEDS ORDERED: ceFAZolin SODIUM 1 GM VIAL ONE ×3 (00:59→17:32)
[2021-06-19] MEDS: oxyCODONE HCL 5 MG TABLET PO PRN ×2 (01:02→16:09)
[2021-06-19] MEDS: CEFAZOLIN 1 GM in DEXTROSE 5%-WATER - 1 GM/50 ML IVPB IVPB SCH ×3 (01:03→17:35)
[2021-06-19] MEDS: HEPARIN NA (PORCINE) 5,000 UNITS/ML 1ML VIAL SQ SCH ×3 (05:00→21:52)
[2021-06-19] MEDS ORDERED: MELATONIN 5 MG TABLETS PO ONE (06:00)
[2021-06-19] MEDS: DOCUSATE SODIUM 100 MG CAPSULE (FP) PO SCH ×3 (06:01→21:53)
[2021-06-19] MEDS: INSULIN SLIDING SCALE (NOVOLOG) 1 VIAL SQ SCH ×4 (06:10→21:53)
[2021-06-19] MEDS: metFORMIN HCL 500 MG TABLET (FP) PO SCH ×2 (06:13→17:20)
[2021-06-19] MEDS: FOLIC ACID 1 MG TABLET (FP) PO SCH (09:57)
[2021-06-19] MEDS: TRIAMTERENE AND HCTZ - 37.5 MG/25 MG CAPSULE PO SCH (09:57)
[2021-06-19] MEDS: CHOLECALCIFEROL (VIT D3) 1,000 UNIT (25 MCG) TABLET PO SCH (09:57)
[2021-06-19] MEDS ORDERED: TRIAMTERENE AND HCTZ - 37.5 MG/25 MG CAPSULE PO SCH (10:00)
[2021-06-19 10:13] LABS: HEMATOCRIT 26.5 % (32.4-45.2); HEMOGLOBIN 8.8 GM/dL (10.7-15.3); MCH 29.4 pg (25.7-33.7); MEAN CELL VOLUME 88.1 fl (80-96); WHITE BLOOD COUNT 11.4 K/mm3 (4.0-10.0)
[2021-06-19 10:14] LABS: MCHC 33.4 g/dl (32.0-36.0); MEAN PLT VOLUME 8.5 fl (7.5-11.1); PLATELET COUNT 223 10^3/uL (134-434); RDW 14.1 % (11.6-15.6)
[2021-06-19 10:37] LABS: CALCIUM 8.7 mg/dL (8.5-10.1)
[2021-06-19 10:38] LABS: BLOOD UREA NITROGEN 17.4 mg/dL (7-18)
[2021-06-19] MEDS ORDERED: POTASSIUM CHLORIDE TABS 20 MEQ TABLET.ER (FP) PO ONE (13:45)
[2021-06-20] MEDS ORDERED: ceFAZolin SODIUM 1 GM VIAL ONE ×3 (01:57→17:50)
[2021-06-20] MEDS ORDERED: DEXTROSE 5%-WATER - 50 ML IVPB ONE ×3 (01:57→17:50)
[2021-06-20] MEDS: CEFAZOLIN 1 GM in DEXTROSE 5%-WATER - 1 GM/50 ML IVPB IVPB SCH ×3 (02:01→17:55)
[2021-06-20] MEDS: HEPARIN NA (PORCINE) 5,000 UNITS/ML 1ML VIAL SQ SCH ×3 (05:00→20:57)
[2021-06-20] MEDS: DOCUSATE SODIUM 100 MG CAPSULE (FP) PO SCH ×3 (05:46→21:06)
[2021-06-20] MEDS: metFORMIN HCL 500 MG TABLET (FP) PO SCH ×2 (06:24→16:48)
[2021-06-20] MEDS: INSULIN SLIDING SCALE (NOVOLOG) 1 VIAL SQ SCH ×4 (06:24→21:06)
[2021-06-20 07:11] LABS: HEMATOCRIT 25.2 % (32.4-45.2); HEMOGLOBIN 8.4 GM/dL (10.7-15.3); MCH 29.2 pg (25.7-33.7); MCHC 33.2 g/dl (32.0-36.0); MEAN CELL VOLUME 88.1 fl (80-96); MEAN PLT VOLUME 8.5 fl (7.5-11.1); PLATELET COUNT 208 10^3/uL (134-434); RBC 2.86 M/mm3 (3.60-5.2); RDW 14.4 % (11.6-15.6); WHITE BLOOD COUNT 12.9 K/mm3 (4.0-10.0)
[2021-06-20 07:46] LABS: CALCIUM 7.9 mg/dL (8.5-10.1)
[2021-06-20 07:47] LABS: BLOOD UREA NITROGEN 15.2 mg/dL (7-18)
[2021-06-20 07:50] LABS: CREATININE 0.9 mg/dL (0.55-1.3)
[2021-06-20 07:51] LABS: BILIRUBIN,TOTAL 0.4 mg/dL (0.2-1)
[2021-06-20] MEDS ORDERED: POTASSIUM CHLORIDE TABS 20 MEQ TABLET.ER (FP) PO ONE (07:51)
[2021-06-20 08:00] LABS: ALBUMIN 2.6 g/dl (3.4-5.0)
[2021-06-20] MEDS: FOLIC ACID 1 MG TABLET (FP) PO SCH (10:22)
[2021-06-20] MEDS: CHOLECALCIFEROL (VIT D3) 1,000 UNIT (25 MCG) TABLET PO SCH (10:22)
[2021-06-20] MEDS: POLYETHYLENE GLYCOL (HEALTHYLAX) 3350 17 GM PACKET PO SCH (10:22)
[2021-06-20] MEDS: TRIAMTERENE AND HCTZ - 37.5 MG/25 MG CAPSULE PO SCH (11:53)
[2021-06-20] MEDS: oxyCODONE HCL 5 MG TABLET PO PRN ×2 (15:05→20:57)
[2021-06-21] MEDS ORDERED: DEXTROSE 5%-WATER - 50 ML IVPB ONE ×3 (01:26→16:30)
[2021-06-21] MEDS ORDERED: ceFAZolin SODIUM 1 GM VIAL ONE ×3 (01:26→16:29)
[2021-06-21] MEDS: CEFAZOLIN 1 GM in DEXTROSE 5%-WATER - 1 GM/50 ML IVPB IVPB SCH ×3 (01:36→17:01)
[2021-06-21] MEDS: oxyCODONE HCL 5 MG TABLET PO PRN ×3 (01:36→19:47)
[2021-06-21] MEDS: HEPARIN NA (PORCINE) 5,000 UNITS/ML 1ML VIAL SQ SCH ×3 (05:38→21:41)
[2021-06-21] MEDS: DOCUSATE SODIUM 100 MG CAPSULE (FP) PO SCH ×3 (05:38→21:41)
[2021-06-21] MEDS: metFORMIN HCL 500 MG TABLET (FP) PO SCH ×2 (06:13→16:34)
[2021-06-21] MEDS: INSULIN SLIDING SCALE (NOVOLOG) 1 VIAL SQ SCH ×4 (06:14→21:44)
[2021-06-21 07:32] LABS: BASO % 0.5 % (0-2.0); EOS % 0.2 % (0-4.5); HEMATOCRIT 25.8 % (32.4-45.2); HEMOGLOBIN 8.7 GM/dL (10.7-15.3); MCH 29.6 pg (25.7-33.7); MCHC 33.6 g/dl (32.0-36.0); MEAN CELL VOLUME 87.9 fl (80-96); MEAN PLT VOLUME 8.3 fl (7.5-11.1); MONO % 8.5 % (3.8-10.2); NEUT % 79.8 % (42.8-82.8); PLATELET COUNT 212 10^3/uL (134-434); RBC 2.93 M/mm3 (3.60-5.2); RDW 14.3 % (11.6-15.6); WHITE BLOOD COUNT 13.6 K/mm3 (4.0-10.0)
[2021-06-21 07:53] LABS: ALBUMIN 2.6 g/dl (3.4-5.0)
[2021-06-21 07:54] LABS: BLOOD UREA NITROGEN 8.7 mg/dL (7-18)
[2021-06-21 07:56] LABS: CREATININE 0.8 mg/dL (0.55-1.3)
[2021-06-21 07:57] LABS: BILIRUBIN,TOTAL 0.5 mg/dL (0.2-1); TOT PROT 6.3 g/dl (6.4-8.2)
[2021-06-21] MEDS: CHOLECALCIFEROL (VIT D3) 1,000 UNIT (25 MCG) TABLET PO SCH (09:18)
[2021-06-21] MEDS: FOLIC ACID 1 MG TABLET (FP) PO SCH (09:18)
[2021-06-21] MEDS: POLYETHYLENE GLYCOL (HEALTHYLAX) 3350 17 GM PACKET PO SCH (09:19)
[2021-06-21] MEDS: TRIAMTERENE AND HCTZ - 37.5 MG/25 MG CAPSULE PO SCH (09:20)
[2021-06-21] MEDS ORDERED: BISACODYL 5 MG TABLET.DR (FP) PO ONE (15:00)
[2021-06-21 18:03] LABS: EPI CELLS 5 /uL (0-25.1); HYALINE CASTS 0 /uL (0-3.1); PH,URINE 6.5 (5.0-8.0); URINE APPEARANCE CLEAR; URINE BACTERIA 1 /uL (0-1359); URINE BILIRUBIN NEGATIVE (NEGATIVE); URINE COLOR YELLOW; URINE GLUCOSE (UA) NEGATIVE (NEGATIVE); URINE KETONE NEGATIVE (NEGATIVE); URINE LEUK ESTERASE NEGATIVE (NEGATIVE); URINE NITRITE NEGATIVE (NEGATIVE); URINE PROTEIN NEGATIVE (NEGATIVE); URINE RBC 48 /uL (0-23.9); URINE WBC 9 /uL (0-25.8)
[2021-06-21] MEDS ORDERED: oxyCODONE HCL 5 MG TABLET PO PRN (19:35)
[2021-06-21] MEDS ORDERED: morphine SULFATE 4 MG/ML VIAL IVPUSH PRN (19:36)
[2021-06-22] MEDS ORDERED: DEXTROSE 5%-WATER - 50 ML IVPB ONE ×3 (02:09→16:54)
[2021-06-22] MEDS ORDERED: ceFAZolin SODIUM 1 GM VIAL ONE ×3 (02:09→16:54)
[2021-06-22] MEDS: CEFAZOLIN 1 GM in DEXTROSE 5%-WATER - 1 GM/50 ML IVPB IVPB SCH ×3 (02:19→17:30)
[2021-06-22] MEDS: oxyCODONE HCL 5 MG TABLET PO PRN ×4 (06:24→20:20)
[2021-06-22] MEDS: metFORMIN HCL 500 MG TABLET (FP) PO SCH ×2 (06:24→17:30)
[2021-06-22] MEDS: HEPARIN NA (PORCINE) 5,000 UNITS/ML 1ML VIAL SQ SCH ×3 (06:24→21:10)
[2021-06-22] MEDS: DOCUSATE SODIUM 100 MG CAPSULE (FP) PO SCH ×3 (06:24→21:10)
[2021-06-22] MEDS: INSULIN SLIDING SCALE (NOVOLOG) 1 VIAL SQ SCH ×4 (06:28→21:10)
[2021-06-22] MEDS: FOLIC ACID 1 MG TABLET (FP) PO SCH (09:50)
[2021-06-22] MEDS: CHOLECALCIFEROL (VIT D3) 1,000 UNIT (25 MCG) TABLET PO SCH (09:51)
[2021-06-22] MEDS: POLYETHYLENE GLYCOL (HEALTHYLAX) 3350 17 GM PACKET PO SCH (09:51)
[2021-06-22] MEDS: TRIAMTERENE AND HCTZ - 37.5 MG/25 MG CAPSULE PO SCH (09:51)
[2021-06-22] MEDS ORDERED: BISACODYL 10 MG SUPP.RECT PR ONE (17:19)
[2021-06-22] MEDS ORDERED: SODIUM PHOSPHATE/NA BIPHOS 133 ML ENEMA RC PRN (17:20)
[2021-06-23] MEDS ORDERED: DEXTROSE 5%-WATER - 50 ML IVPB ONE ×3 (00:42→16:58)
[2021-06-23] MEDS ORDERED: ceFAZolin SODIUM 1 GM VIAL ONE ×3 (00:42→16:58)
[2021-06-23] MEDS: CEFAZOLIN 1 GM in DEXTROSE 5%-WATER - 1 GM/50 ML IVPB IVPB SCH ×3 (01:51→17:17)
[2021-06-23] MEDS: oxyCODONE HCL 5 MG TABLET PO PRN ×4 (02:58→22:26)
[2021-06-23] MEDS: metFORMIN HCL 500 MG TABLET (FP) PO SCH ×2 (06:04→16:53)
[2021-06-23] MEDS: HEPARIN NA (PORCINE) 5,000 UNITS/ML 1ML VIAL SQ SCH ×3 (06:04→22:24)
[2021-06-23] MEDS: DOCUSATE SODIUM 100 MG CAPSULE (FP) PO SCH ×3 (06:05→22:24)
[2021-06-23] MEDS: INSULIN SLIDING SCALE (NOVOLOG) 1 VIAL SQ SCH ×4 (06:07→22:25)
[2021-06-23] MEDS: CHOLECALCIFEROL (VIT D3) 1,000 UNIT (25 MCG) TABLET PO SCH (09:06)
[2021-06-23] MEDS: POLYETHYLENE GLYCOL (HEALTHYLAX) 3350 17 GM PACKET PO SCH (09:06)
[2021-06-23] MEDS: FOLIC ACID 1 MG TABLET (FP) PO SCH (09:06)
[2021-06-23] MEDS: TRIAMTERENE AND HCTZ - 37.5 MG/25 MG CAPSULE PO SCH (09:06)
[2021-06-23] MEDS: SIMETHICONE 80 MG TAB.CHEW (FP) PO PRN (17:23)
[2021-06-24] MEDS ORDERED: ceFAZolin SODIUM 1 GM VIAL ONE ×3 (02:36→16:18)
[2021-06-24] MEDS ORDERED: DEXTROSE 5%-WATER - 50 ML IVPB ONE ×3 (02:36→16:18)
[2021-06-24] MEDS: CEFAZOLIN 1 GM in DEXTROSE 5%-WATER - 1 GM/50 ML IVPB IVPB SCH ×3 (02:48→17:06)
[2021-06-24] MEDS: HEPARIN NA (PORCINE) 5,000 UNITS/ML 1ML VIAL SQ SCH ×2 (05:45→14:26)
[2021-06-24] MEDS: metFORMIN HCL 500 MG TABLET (FP) PO SCH ×2 (06:31→16:19)
[2021-06-24] MEDS: DOCUSATE SODIUM 100 MG CAPSULE (FP) PO SCH ×2 (06:31→14:26)
[2021-06-24] MEDS: SIMETHICONE 80 MG TAB.CHEW (FP) PO PRN (06:36)
[2021-06-24] MEDS: oxyCODONE HCL 5 MG TABLET PO PRN ×2 (06:37→17:26)
[2021-06-24] MEDS: INSULIN SLIDING SCALE (NOVOLOG) 1 VIAL SQ SCH ×3 (07:00→16:22)
[2021-06-24] MEDS ORDERED: SODIUM PHOSPHATE/NA BIPHOS 133 ML ENEMA RC ONE (08:04)
[2021-06-24] MEDS: POLYETHYLENE GLYCOL (HEALTHYLAX) 3350 17 GM PACKET PO SCH (09:51)
[2021-06-24] MEDS: CHOLECALCIFEROL (VIT D3) 1,000 UNIT (25 MCG) TABLET PO SCH (09:51)
[2021-06-24] MEDS: FOLIC ACID 1 MG TABLET (FP) PO SCH (09:51)
[2021-06-24] MEDS: TRIAMTERENE AND HCTZ - 37.5 MG/25 MG CAPSULE PO SCH (09:51)
[2021-06-24 19:38] VITALS: BP 113/56; PULSE 70; TEMP 99.5
== END 2021-06-24 19:47 | disposition home or self-care (01) | DRG 304 ==
LOC: J2C 06-18 04:13 → J4S 06-18 17:44
PROVIDERS: ADMIT Internal Medicine; ATTEND Internal Medicine
PROC: 0SG0071 Fusion of Lumbar Vertebral Joint with Autologous Tissue Substitute, Posterior Approach, Posterior Column, Open Approach (ICD-10-PCS; 2021-06-18)
PROC: 0ST20ZZ Resection of Lumbar Vertebral Disc, Open Approach (ICD-10-PCS; 2021-06-18)
PROC: 4A11X4G Monitoring of Peripheral Nervous Electrical Activity, Intraoperative, External Approach (ICD-10-PCS; 2021-06-18)
PROC: 0SG00AJ Fusion of Lumbar Vertebral Joint with Interbody Fusion Device, Posterior Approach, Anterior Column, Open Approach (ICD-10-PCS; principal; 2021-06-18 08:00)
DX: M48.061 Spinal stenosis, lumbar region without neurogenic claudication (principal); M47.816 Spondylosis without myelopathy or radiculopathy, lumbar region; M43.16 Spondylolisthesis, lumbar region; E66.9 Obesity, unspecified; Z68.37 Body mass index [BMI] 37.0-37.9, adult; M51.26 Other intervertebral disc displacement, lumbar region
CPT/HCPCS: 36415; 71045-TC-FY; 72131-TC; 76000-TC-FY; 80048; 80053; 81003; 82962; 85025; 85027; 86850; 86900; 86901; 87086; 93970-TC; 94760; 97116-GP; 97161-GP; J1644

== ENCOUNTER 2023-07-23 04:13 | Day surgery (SDC) | payer OTHER ==
[2023-07-21 10:22] VITALS: BMI 35.6
[2023-07-23] MEDS ORDERED: LIDOCAINE 1%/EPI 1:100000 (20 ML MULTI DOSE VIAL) ONE (07:24)
[2023-07-23] MEDS ORDERED: PROPOFOL 20 ML ONE ×2 (07:41→08:29)
[2023-07-23] MEDS ORDERED: MIDAZOLAM HCL 2 MG/2 ML SINGLE DOSE VIAL ONE (07:41)
[2023-07-23] MEDS ORDERED: FENTANYL CITRATE/PF 50 MCG/ML VIAL ONE ×2 (07:41→10:30)
[2023-07-23] MEDS ORDERED: SUCCINYLCHOLINE CHLORIDE 200 MG/10 ML SYRINGE ONE (07:41)
[2023-07-23] MEDS ORDERED: ONDANSETRON 4 MG/2 ML VIAL IVPUSH PRN (08:05)
[2023-07-23] MEDS ORDERED: LACTATED RINGERS SOLUTION 1,000 ML IV SCH (08:15)
[2023-07-23] MEDS ORDERED: LIDOCAINE HCL/PF 2% SDV 5ML VIAL ONE (08:19)
[2023-07-23] MEDS: ceFAZolin SODIUM 1 GM VIAL IVPB ONE (08:36)
[2023-07-23] MEDS ORDERED: ceFAZolin SODIUM 1 GM VIAL ONE (08:37)
[2023-07-23] MEDS ORDERED: DEXAMETHASONE SOD PHOSPHATE 4 MG/1 ML VIAL ONE (08:37)
[2023-07-23] MEDS ORDERED: ONDANSETRON 4 MG/2 ML VIAL ONE (08:37)
[2023-07-23] MEDS: LIDOCAINE 1%/EPI 1:100000 (20 ML MULTI DOSE VIAL) IJ ONE (08:56)
[2023-07-23] MEDS ORDERED: VASopressin 20 UNITS/ML VIAL IV ONE (09:02)
[2023-07-23] MEDS: FENTANYL CITRATE/PF 50 MCG/ML VIAL ONE ×2 (10:18→10:30)
[2023-07-23 14:16] VITALS: BP 147/79; PULSE 80; RESP 16; TEMP 97
== END 2023-07-23 14:18 | disposition home or self-care (01) ==
LOC: JASU-SURG 04:13
PROVIDERS: ATTEND Surgery
PROC: 0GTG0ZZ Resection of Left Thyroid Gland Lobe, Open Approach (ICD-10-PCS; principal; 2023-07-23 08:00)
DX: E04.2 Nontoxic multinodular goiter (principal)
CPT/HCPCS: 82962; 88307-TC; 94760